=== PATIENT | male | born 1990 | race Asian ===

== ENCOUNTER 2024-06-05 10:16 | Day surgery (SDC) | payer OTHER, SELFPAY ==
[2024-06-02 15:00] VITALS: BMI 28.8
[2024-06-05] VITALS (7 sets, daily range): BP systolic 115–134; BP diastolic 67–81; PULSE 70–94; RESP 12–21; TEMP 36.1–36.6; O2SAT 95–99; BMI 28.8
[2024-06-05] MEDS: LACTATED RINGERS 1,000 ML 42 ML IV ×2 (11:09→14:17)
--- NOTE | 2024-06-05 12:29 | PM.PREOP ---
Pre-operative Note Interval Note History & Physical reviewed/Exam performed by Physician: Yes Changes to H&P: No
--- NOTE | 2024-06-05 12:49 | SUR.PREOP ---
Block start time [Hu out at [id number]] . Monitoring initiated and maintained throughout procedure. Oxygen and medications given per anesthesia. Patient remained stable throughout procedure, no adverse reactions noted. Block end time [1235].
[2024-06-05] MEDS: CEFAZOLIN 2 GM/100 ML PREMIX 100 ML IV (12:50)
--- NOTE | 2024-06-05 13:11 | SUR.OPER ---
Lateral on padded OR bed with peguero bag positioner, head on pillow, gel axillary roll in place, bottom leg bent with gel pad under knee to foot, upper leg straight and supported with pillows. Operative arm secured in shoulder positioning suspension device. non-operative arm secured on padded arm board. Safety belt at hip, tape over blanket securing lower legs.
[2024-06-05] MEDS: BUPIVACAINE 0.25% (PF) 30 ML, EPINEPHrine 0.15 MG INJ (13:16)
[2024-06-05] MEDS: EPINEPHrine 1 MG/ML 3 MG IRR (14:00)
--- NOTE | 2024-06-05 14:46 | P.OP_ITS ---
Operative Date/Time/Diagnoses Date of procedure: 06/05/24 Time of procedure: 14:46 Pre-op diagnosis: Anterior shoulder instability Post-op diagnosis: same Procedure & Clinicians Procedure: 1. Right arthroscopic labral repair 2. Right shoulder remplissage 3. Loose body removal Same procedure as scheduled: Yes Indications: This is a 33-year-old male Who has shoulder instability after dislocation. MRI demonstrates aanterior labral tear. In order to prevent further dislocations into decrease the risk of arthritis we discussed performing arthroscopic Bankart repair with possible remplissage. Risks were again discussed with the patient and they wished to go forward with surgery. Surgeon: Ky Rajput Supervisor Blueprinting And Photocopy: Josey Salinas Anesthesia Type: General Operative Notes Findings: Findings: Exam under anesthesia:Subluxation over the rim anteriorly which is reducible. No instability posteriorly Biceps long head: Intact sling, normal attachment to the anchor. Subscapularis: Intact Rotator cuff: Intact without any undersurface tearing noted Inferior capsule: Intact and attached to the glenoid and humeral head, loose body noted in the inferior pouch measuring about 2 cm Glenoid cartilage: No chondromalacia, there is a small amount of anterior bone loss Humeral head: Smooth and intact, posterior Hill-Sachs lesion noted Anterior labrum: Tear noted from 230 o'clock to 6 o'clock Closure Type: primary Specimen(s): none sent Prosthetic devices, grafts, tissues, transplants, or devices: Implants: Arthrex 1.8 mm knotless FiberTak x 6 PushLock x1 Estimated Blood Loss (mL): 10 Blood products transfused: none Procedure in detail: Description of procedure: The patient was seen and evaluated in the preoperative holding area where the risks, benefits, and alternatives of the surgery were discussed. Risks include bleeding, infection, damage to neurovascular structures including the axillary nerve, blood clots including pulmonary embolism, worsening of pain, stiffness, swelling, failure of the surgery, recurrent instability and the need for future surgery. No guarantees were made regarding outcomes. They consented to surgery and the correct operative extremity was marked with my initials. The patient was then brought to the operating room and underwent smooth induction of anesthesia. Patient was placed in the lateral position with the right upper extremity facing up. An axillary roll was placed and all bony prominences were padded and the beanbag was suctioned. 2 g of Ancef were delivered intravenously. The right upper extremity was prepped and draped in the standard sterile fashion. The arm was placed in the suspension device with 10 lb of weight. A time-out was then performed in my initials were again confirmed. A standard posterior portal was then established and an anterior inferior portal was established using a gentleman I. Last a viewing portal was established just posterior to the biceps long head tendon. A diagnostic scope was performed n oting the above findings. A 7 mm cannula was used for the posterior and viewing portals. Without breaching the posterior capsule with a cannula, 2 separate peek knotless anchors were placed into the Hill-Sachs lesion using our posterior portal incision. The sutures were kept separate from each other and snapped, saved to be used at the end of the case. A liberator was used through the anterior working portal to elevate the anterior labrum and capsule off of the anterior glenoid. A ring curette was used to freshen up the edges of the cartilage. Using a 1.8 mm Arthrex knotless FiberTak system we began inferiorly using a curved guide starting between 530 and 6 o'clock. The 1st anchor was placed in a SutureLasso was used to take the passing suture around the labrum and capsule. This was then tightened down through the anterior working portal using the knotless system. This process was repeated at 5, 4 and 3 o'clock ending at the height of upper border of the subscapularis Last, we turned our attention back to the remplissage repair. A passing suture from each anchor it was run through the other anchor and then tightened, creating a repair on the outside of the capsule and filling in the Hill-Sachs lesion. This proved to be a good repair and the head was noted to be centered over the glenoid at the end of the case. The shoulder was suctioned dry and the arthroscope was removed. 15 cc of Marcaine were placed into the joint. Portals were then closed with Monocryl and dressed with Xeroform, 4x4s and ABDs. Patient was placed into a sling and woken from anesthesia. Attending/magistrate assistant participation: This operation could not have been safely performed (without compromising the technical results or length of the procedure) without the assistance of a skilled surgical supply assistant. The surgical supply assistant was medically necessary for proper positioning, retraction and manipulation of instruments, proper exposure and manipulation of tissue. Complications: none Post-operative Condition: stable Disposition: PACU Plan for aftercare: Postoperative instructions: Sling to remain on for 6 weeks. Patient may remove dressings after postoperative day 3, and allow soap and water to run over the incisions in the shower. Placed Band-Aids over the incisions for at least 2 more days. First postoperative visit in 2 weeks, 2nd postoperative visit in 6 weeks.
== END 2024-06-05 15:35 | disposition home or self-care (01) ==
PROVIDERS: Referring Provider Orthopaedic Surgery; Visit Provider Orthopaedic Surgery
PROC: 0RQJ4ZZ Repair Right Shoulder Joint, Percutaneous Endoscopic Approach (ICD-10-PCS; CPT 29807; principal; 2024-06-05 11:45)
DX: M24.411 Recurrent dislocation, right shoulder (principal); G89.18 Other acute postprocedural pain; M24.011 Loose body in right shoulder; S42.294A Other nondisplaced fracture of upper end of right humerus, initial encounter for closed fracture
CPT/HCPCS: 29806; 64450; J0171; J0690; J1100; J2250; J2405; J2704; J3010; J3490